=== PATIENT | male | born 1990 | race Caucasian/White ===

== ENCOUNTER 2016-10-20 15:46 | Emergency (ER) | payer MEDICAID ==
[~2016-10-20] VITALS: Ht 172.7 cm; Wt 94.1 kg
[~2016-10-20 15:46] MED LIST: AMIT150T PO
[2016-10-20] MEDS ORDERED: DIPHENHYDRAMINE 50 MG/ML, 1ML IVPush ONE (16:30)
[2016-10-20] MEDS ORDERED: SODIUM CHLORIDE 0.9% 1,000ML IVBOLUS ONE (16:30)
[2016-10-20] MEDS ORDERED: PROCHLORPERAZINE 5 MG/ML, 2ML IVPush ONE (16:30)
[2016-10-20] MEDS ORDERED: DIPHENHYDRAMINE 50 MG/ML, 1ML ONE (16:49)
[2016-10-20] MEDS ORDERED: PROCHLORPERAZINE 5 MG/ML, 2ML ONE (16:50)
[2016-10-20] MEDS ORDERED: QUET150T PO (17:09)
[2016-10-20 17:22] VITALS: BP 134/78
== END 2016-10-20 17:24 | disposition home or self-care (01) ==
LOC: ED 17:14
DX: G43.909 Migraine, unspecified, not intractable, without status migrainosus (principal); F41.1 Generalized anxiety disorder
CPT/HCPCS: 70450; 99284

== ENCOUNTER 2016-12-14 07:42 | Emergency (ER) | payer MEDICAID ==
[~2016-12-14] VITALS: Ht 175.3 cm; Wt 96.0 kg
[~2016-12-14 07:42] MED LIST changes: +QUET150T PO
[2016-12-14 07:44] VITALS: BP 136/86
[2016-12-14] MEDS ORDERED: KETOROLAC 30 MG/1 ML IM ONE (08:30)
[2016-12-14] MEDS ORDERED: maalox/diphenh/lido/sucralfate 5 ML PO PRN (08:30)
[2016-12-14] MEDS ORDERED: KETOROLAC 30 MG/1 ML ONE (08:49)
== END 2016-12-14 09:12 | disposition home or self-care (01) ==
LOC: ED 09:06
DX: J02.8 Acute pharyngitis due to other specified organisms (principal); B97.89 Other viral agents as the cause of diseases classified elsewhere
CPT/HCPCS: 87081; 87880; 96372; 99284; J1885